=== PATIENT | male | born 1990 | race Caucasian/White ===

== ENCOUNTER 2016-10-15 10:52 | Emergency (ER) | payer OTHER ==
[2016-10-15] MEDS ORDERED: Lidocaine 1% 10 MG/ML - 20 ML VIAL SUBCUT ONE (11:25)
--- NOTE | 2016-10-15 12:45 | DI ---
HISTORY: Head trauma. Truck fell on head. COMPARISON: None. TECHNIQUE: Contiguous axial unenhanced images of the brain were obtained from the skull base through the vertex. The images were then submitted for interpretation. There is no acute infarct, intracranial hemorrhage or mass effect. There is no hydrocephalus, or sig nificant midline shift. The basal cisterns are not effaced. Visualized paranasal sinuses and mastoids are well-aerated. There is no depressed skull fracture. IMPRESSION: 1. No intracranial hemorrhage. MRI is recommended if clinical symptoms persist.
[2016-10-15 14:03] VITALS: RESP 14; TEMP 98
[2016-10-15] MEDS ORDERED: BACITRACIN 0.9 GM PACKET OINT TOPICAL SCH (14:45)
--- NOTE | 2016-10-16 07:35 | PDOC ---
Head Injury HPI - General Chief Complaint: Head Problem / Injury Stated Complaint: HEAD INJURY Date Seen by Provider: 10/15/16 Time Seen by Provider: 11:15 Source: POSITIVE: Patient Exam Limitations: POSITIVE: No limitations Nurse's Notes Reviewed & Considered: Yes - History of Present Illness Initial Comments: The patient is a 25-year-old male. Patient was lying under a truck working on its chassis. He states that the zeny slipped and the vehicle came down and compressed his head between the vehicle and the floor. He managed to extricate himself. He sustained a laceration to the left ear and to the right side of the scalp. He complains of some headache. He had no loss of consciousness. He has no EENT symptoms except for laceration to the left external ear. No sensory or motor symptoms. No nausea or vomiting. Have you received a tetanus shot in the past 10 years?: Yes Body Location Affected: REPORTS: Head, Scalp, Ear (L) Timing: REPORTS: Abrupt Duration: 1 hour Severity: Moderate Context: REPORTS: Direct Blow, Other (Compression of head as above.) Quality: REPORTS: "Pain" (Some pain to the left external ear and right side of scalp) Associated Symptoms: REPORTS: Recalls Injury, Recalls Coming to ER, Blow to Head. DENIES: Dazed, Seizure, Trouble Breathing, Memory Impairment, Lost Consciousness Duration of Altered Mental Status (in minutes):: 0 Location of Injuries / Pain: REPORTS: Left, Ears, Other (Right side of scalp) Any Prior Injuries Related to Current Complaint?: No - Patient Home Medications Home Medications: Home Medications NK [No Home Medications Reported] 10/15/16 - Patient Allergies Allergies/Adverse Reactions: Allergies Allergy/AdvReac Type Severity Reaction Status Date / Time No Known Allergies Allergy Verified 10/15/16 11:30 Past Medical History - heen HEENT History: Denies History Cardiovascular History: Denies History Respiratory History: Denies History Gastrointestinal History: Denies History Genitourinary History: Denies History Endocrine History: Denies History Musculoskeletal History: Denies History Prosthesis or Implant: No Neurological History: Denies History Blood Disorders: Denies History Psychiatric History: Denies History Male Reproductive History: Other (please comment) Additional Male Reproductive History: 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 Cancer History: Denies History In Past Year Been Physically Harmed or Verbally Threatened: No History of MDRO: No Tobacco Use: Never Smoker Alcohol Use: None Substance Use Type: None Previous Surgical History: Yes Type / Date of Surgery: left testicle Anesthesia Reactions: (unknown) Significant Family History: No pertinent family hx Past Medical History Reviewed: Reviewed - No Changes ROS - Limitations ROS Limitations: No Limitations Constitution: REPORTS: Denies Symptoms Cardiovascular: REPORTS: Denies Cardiac Symptoms Respiratory: REPORTS: Denies Resp Symptoms Neurological: REPORTS: Headache Gastrointestinal: REPORTS: Denies GI Symptoms Endocrine: REPORTS: Denies Symptoms Musculoskeletal: REPORTS: Denies MS Symptoms Genitourinary: REPORTS: Denies Symptoms Eyes: REPORTS: Denies Symptoms ENT: REPORTS: Other (Laceration to left external ear; see diagram) Skin: REPORTS: Other (Scalp laceration right scalp as above; see diagram) Lympathic: REPORTS: Denies Lympathic Symptoms Immunologic: POSITIVE: Denies Symptoms Psychiatric: POSITIVE: Denies Psych Symptoms Head Injury Physical Exam - General Appearance General Appearance: POSITIVE: Alert, Cooperative, No Acute Distress. NEGATIVE: No Evidence of Trauma (Laceration to right sided scalp and left external ear;) - HEENT Head / Face: POSITIVE: No Facial Swelling, Other (Laceration right side of scalp parietal area and laceration left external ear) Eyes: POSITIVE: Inspection Normal, PERRL, EOM's Intact, Eyelids Uninjured, Conjunctivae Uninjured, No Nystagmus, No Globe Trauma, Sclera Normal, Normal Corneal Inspection, Normal Fundoscopic Exam, No Papilledema Ears: POSITIVE: TM Normal Inspection, External Canal Normal, Hearing Deficit ( No gross hearing deficit). NEGATIVE: Auricle Normal (Laceration as above; see diagram) Nose: POSITIVE: Inspection Normal, No Apparent Trauma, Nares Normal, No CSF Leak Oropharynx: POSITIVE: External Inspection Nml, Pharynx Inspect. Nml, Airway Intact, Voice Normal, Moist Mucous Membranes, No Oral Injury, Lips Normal, Gums Normal, No Drooling, No Thrush, Normal Gag Reflex Dental: POSITIVE: No Dental Injury - Pupil Size Pupil Size: 4 mm: Bilateral (PERRLA) - Neuro / Psych Neuro / Psych: POSITIVE: Alert, Oriented x 3, Cooperative, Interactive, Mood Appropiate, Affect Appropriate Cranial Nerves: POSITIVE: Normal As Tested, No Evidence of Acute CVA Cerebellar: POSITIVE: Normal As Tested Sensorimotor: POSITIVE: No Motor Deficits, No Sensory Deficits, Reflexes Normal - Respiratory / CVS Respiratory / CVS: POSITIVE: Chest Non Tender, No Ecchymosis, Breath Sounds Normal, No Respiratory Distress, Heart Sounds Normal, Regular Rate/Rhythm Peripheral Pulses: Radial (R): 2+, Radial (L): 2+ - Neck Neck: POSITIVE: See Diagram, Other. NEGATIVE: Normal Inspection, Non-Tender, Painless ROM, Thyroid Normal, Nexus Criteria Negative, Muscle Spasm, Decreased ROM, Lymphadenopathy, Thyromegaly, Pain w/ Axial Compression, Subcutaneous Emphysema, Midline Tenderness, Distracting Injury, Altered Mental Status, Recent ETOH, Focal Neuro Defit - Back Back: POSITIVE: Normal Inspection, No CVA Tenderness, Non Tender, Painless ROM, No Vertebral Tenderness - Extremities Extremity Assessment: Non-Tender: (ALL), Normal ROM: (ALL), No Edema: (ALL), Normal Inspection: (ALL), No Swelling: (ALL) Joint Exam: POSITIVE: Joints Normal, Normal ROM, Normal Gait, Normal Weight Bearing Images - Head Head: 1 - Scalp laceration - Ears Ear: 1 - Laceration Procedures - Laceration/Wound Repair Did patient have a laceration repair: Yes Site of Laceration/Wound: Scalp laceration right parietal area and left external ear Wound Length (cm): 5 Wound's Depth, Shape: Into subcutaneous tissue, Linear Time of Suture Placement:: 13:45 Distal CMS: Yes Skin Prep: Sterile Field Maintained, Sterile Drapes Applied, Sterile Dressing Applied, Other (Normal saline) Local Anesthesia Used - Indicate Amt Used in Comment: Lidocaine 1%: Yes Irrigated w/ Saline (mL): 30 Wound Explored: No foreign body removed Wound Debrided: Minimal Wound Repaired With: Sutures single layer Suture Size/Type: 5:0 Number of Sutures: 13 Layer Closure?: No Drain Placement: No Sterile Dressing Applied?: Yes Procedure Note:: After local anesthesia with 1% lidocaine a 5 cm transverse laceration of the left aural pinna was sterilely and copiously cleansed with normal saline. Laceration carries down to the cartilage but there is no laceration through the cartilage. No hematoma. Laceration was then repaired with 9 5.0 Ethilon simple interrupted sutures. After local anesthesia with 1% lidocaine the 5 cm laceration to the right scalp over the parietal area repaired with 4 simple nylon sutures. Dressing placed over laceration of left ear. Head Injury Progress - Results Reviewed by me Xrays/CTs/US Reviewed by me: Yes Discussed with Radiologist: Yes Radiology Findings: CT scan head without contrast normal. - Patient's Progress Pain Medication Addressed: POSITIVE: Yes (Recommended Advil or Tylenol) School/Work Release Addressed: POSITIVE: Not Applicable Re-examine Time: 14:45 Re-Examine Comment: Primary closure complete; see above Status: POSITIVE: Improved, Re-Examined - Consult Counseled: POSITIVE: Patient, RE: Radiology Results, RE: DX, RE: Need for F/U Head Injury Impression - Clinical Impression Clinical Impression: POSITIVE: Laceration - Continued Care RX Given: No Disposition: POSITIVE: Home Condition: POSITIVE: Improved, Stable Patient Care Time - Estimated PCT Patient Care Time (In Minutes): 75 Vital Signs - VS Reviewed Vital Signs Reviewed: Yes Discharge Clinical Impression: Laceration of ear, Laceration of scalp Discharge Disposition: Discharged to Home Condition: Good Patient Instructions Given at Discharge: Laceration (ED) Additional Instructions: You sustained a laceration of your left ear. The laceration was sutured and I believe he will most likely recover uneventfully. Please keep the sutures in your left ear clean and lubricate the sutures and the wound area with bacitracin or Neosporin ointment twice daily. Please did not get this area sunburned or traumatize. We also sutured a laceration on the right side of the scalp. You may wash her hair and shower normally. Tylenol or Advil for discomfort. Suture removal from the wounds to your left ear and right scalp in 7-10 days. Return here anytime if condition worsens in any way whatsoever Follow Up With: NONE,NONE [Primary Care Provider] - (Instructions as above. Follow-up with your primary care provider. Suture removal in 7-10 days.)
== END 2016-10-15 14:55 | disposition home or self-care (01) ==
LOC: ER 10:52
DX: S01.01XA Laceration without foreign body of scalp, initial encounter (principal); S01.312A Laceration without foreign body of left ear, initial encounter; W20.8XXA Other cause of strike by thrown, projected or falling object, initial encounter
CPT/HCPCS: 12002; 70450; 99283